=== PATIENT | female | born 1955 | race Caucasian/White ===

== ENCOUNTER 2021-08-10 17:41 | Outpatient (CLI) | payer MEDICARE, OTHER | END 2021-08-10 17:42 | disposition critical access hospital (66) | LOC: EMS 17:41 | DX: R55 Syncope and collapse (principal) | CPT/HCPCS: A0425; A0429 ==

== ENCOUNTER 2021-08-10 18:07 | Emergency (ER) | payer MEDICARE, OTHER ==
[2021-08-10 18:39] LABS: BASOPHILS % (AUTO) 0.6 %; EOSINOPHILS # (AUTO) 0.2 10^3/uL (0.0-0.7); EOSINOPHILS % (AUTO) 2.3 %; HCT - HEMATOCRIT 38.9 % (37.0-47.0); LYMPHOCYTES # (AUTO) 1.5 10^3/uL (1.5-3.5); LYMPHOCYTES % (AUTO) 22.4 %; MEAN CORPUSCULAR HEMOGLOBIN 31.6 pg (27.0-31.0); MEAN CORPUSCULAR HGB CONC 33.4 g/dL (32.0-36.0); MEAN CORPUSCULAR VOLUME 94.4 fL (81.0-99.0); MONOCYTES # (AUTO) 0.6 10^3/uL (0.0-1.0); NEUTROPHILS # (AUTO) 4.3 10^3/uL (1.5-6.6); NEUTROPHILS % (AUTO) 65.4 %; PLT - PLATELET COUNT 193 10^3/uL (130-450); RED BLOOD COUNT 4.12 10^6/uL (4.20-5.40); RED CELL DISTRIBUTION WIDTH 12.7 % (12.0-15.0); WHITE BLOOD COUNT 6.5 x10^3/uL (4.8-10.8)
--- NOTE | 2021-08-10 18:54 | ED Physician Documentation ---
History of Present Illness - Stated complaint Stated Complaint: SYNCOPE - Chief complaint Chief Complaint: Neuro - History obtained from History obtained from: Patient - History of Present Illness Timing: Today Pain level max: 0 Pain level now: 0 - Additonal information Additional information: Patient is a 66-year-old female who states that she had a left breast biopsy today at [facility] in [place]. She states she did not eat and drink much over the past 24 hours. They told her to decrease her oral intake. She states that when she got home she had a glass of wine and when she went to stand up she felt dizzy and weak. Worse with standing, better with lying down. Patient was orthostatic with EMS. Review of Systems Constitutional: denies: Fever, Chills GI: denies: Vomiting Skin: denies: Rash Musculoskeletal: denies: Neck pain, Back pain Neurologic: denies: Headache PD PAST MEDICAL HISTORY - Past Medical History Past Medical History: No - Past Surgical History Past Surgical History: No - Present Medications Home Medications: Ambulatory Orders Medication Instructions Recorded Confirmed No Known Home Medications 09/03/13 09/03/13 - Allergies Allergies/Adverse Reactions: Allergies Allergy/AdvReac Type Severity Reaction Status Date / Time codeine [Codeine] Allergy Intermediate Emesis Verified 08/10/21 18:11 Sulfa (Sulfonamide Allergy Intermediate Hives Verified 08/10/21 18:11 Antibiotics) loracarbef [From Lorabid] Allergy Mild Hives Verified 08/10/21 18:11 amoxicillin Allergy Hives Verified 08/10/21 18:11 Penicillins Allergy Hives Verified 08/10/21 18:11 - Social History Does the pt smoke?: No Smoking Status: Never smoker Does the pt drink ETOH?: Yes Does the pt have substance abuse?: No - Immunizations Immunizations are current?: No Immunizations: TDAP current <10years - POLST Patient has POLST: No PD ED PE NORMAL - Vitals Vital signs reviewed: Yes - General General: Alert and oriented X 3, No acute distress, Well developed/nourished - HEENT HEENT: PERRL, Moist mucous membranes - Neck Neck: Supple, no meningeal sign - Cardiac Cardiac: RRR, Strong equal pulses - Respiratory Respiratory: No respiratory distress, Clear bilaterally - Abdomen Abdomen: Soft, Non tender, Non distended - Derm Derm: Warm and dry - Extremities Extremities: No edema, No calf tenderness / cord - Neuro Neuro: Alert and oriented X 3, reshipping clerk 2-12 intact, No motor deficit, No sensory deficit, Normal speech - Psych Psych: Normal mood, Normal affect Results - Vitals Vitals: Vital Signs - 24 hr 08/10/21 08/10/21 08/10/21 18:11 18:30 21:01 Temperature 37.1 C Heart Rate 56 L 61 Heart Rate [ 85 Sitting] Heart Rate [ 93 Standing] Heart Rate [ 62 Supine] Respiratory 18 14 Rate Blood Pressure 136/94 H 129/78 Blood Pressure 115/65 [Sitting] Blood Pressure 82/53 L [Standing] Blood Pressure 121/70 [Supine] O2 Saturation 98 Oxygen O2 Source Room air - EKG (time done) 1826 Rate: Rate (enter#) (56) Rhythm: NSR [place]: Normal Intervals: Normal [place] QRS: Normal Ischemia: Normal ST segments - Labs Labs: Laboratory Tests 08/10/21 08/10/21 08/10/21 18:25 18:25 18:25 WBC 6.5 RBC 4.12 L Hgb 13.0 Hct 38.9 MCV 94.4 MCH 31.6 H MCHC 33.4 RDW 12.7 Plt Count 193 MPV 10.0 Neut # (Auto) 4.3 Lymph # (Auto) 1.5 [place] # (Auto) 0.6 Eos # (Auto) 0.2 Baso # (Auto) 0.0 Absolute Nucleated RBC 0.00 Nucleated RBC % 0.0 Sodium 138 Potassium 3.7 Chloride 104 Carbon Dioxide 25 Anion Gap 9.0 BUN 20 Creatinine 0.5 Estimated GFR (MDRD) 123 Glucose 100 Calcium 9.1 Total Bilirubin 0.7 AST 18 ALT 19 Alkaline Phosphatase 51 Troponin I High Sens 3.7 Total Protein 6.4 L Albumin 4.2 Globulin 2.2 Albumin/Globulin Ratio 1.9 Lipase 39 PD MEDICAL DECISION MAKING - ED course Complexity details: reviewed results, re-evaluated patient, considered differential, d/w patient ED course: Patient with orthostatic hypotension. Given IV fluids and symptoms resolved. Blood pressure normalized. No longer orthostatic. No near syncope. Tolerating p.o. without difficulty. We will have her follow-up with her doctor for further care. Patient counseled regarding signs and symptoms for which I believe and urgent re-evaluation would be necessary. Patient with good understanding of and agreement to plan and is comfortable going home at this time This document was made in part using voice recognition software. While efforts are made to proofread this document, sound alike and grammatical errors may occur. Departure - Departure Disposition: 01 Home, Self Care Clinical Impression: Orthostatic hypotension Condition: Good Instructions: ED Hypotension Orthostatic Follow-Up: your,doctor in 1 week [Other] Comments: Go home and rest tonight. Make sure you are drinking plenty of fluids. Return if you worsen. Follow-up with your doctor for further care. Discharge Date/Time: 08/10/21 21:05
[2021-08-10 18:56] LABS: ALBUMIN 4.2 g/dL (3.2-5.5); ALBUMIN/GLOBULIN RATIO 1.9 (1.0-2.2); BILIRUBIN,TOTAL 0.7 mg/dL (0.2-1.0); CALCIUM 9.1 mg/dL (8.5-10.3); CREATININE 0.5 mg/dL (0.4-1.0); POTASSIUM 3.7 mmol/L (3.5-5.0); TOTAL PROTEIN 6.4 g/dL (6.7-8.2)
[2021-08-10] MEDS ORDERED: SODIUM CHLORIDE 0.9% 1,000 ML IV STA ×2 (18:56)
[2021-08-10] MEDS ORDERED: ONDANSETRON 4 MG/2 ML VIAL IVP STA (19:58)
[2021-08-10 21:02] VITALS: BP 129/78
== END 2021-08-10 21:05 | disposition home or self-care (01) ==
LOC: EDUNIT# → ED 18:07
DX: I95.1 Orthostatic hypotension (principal)
CPT/HCPCS: 36415; 80053; 83690; 84484; 85025; 93005; 96361; 96374; 99283

== ENCOUNTER 2022-08-26 08:00 | Outpatient (CLI) | payer MEDICARE, OTHER ==
--- NOTE | 2022-08-26 10:22 | XRAY Report ---
PROCEDURE: Finger(s) RT INDICATIONS: RIGHT RING FINGER PAIN TECHNIQUE: AP hand, 2 views of the fourth finger(s) acquired. COMPARISON: None FINDINGS: Bones: Dorsal dislocation with foreshortening noted at the fourth distal interphalangeal joint. The f ifth finger is held in flexion at the MCP and PIP joints no evidence of cortical fracture. Soft tissues: No suspicious soft tissue calcifications. IMPRESSION: 1. Fourth DIP dorsal dislocation with foreshortening Reviewed by: Ramo Bertrand MD on 08/26/2022 9:21 AM [place] Approved by: Ramo Bertrand MD on 08/26/2022 9:21 AM [place] Station ID: [id number]
--- NOTE | 2022-08-26 11:46 | XRAY Report ---
PROCEDURE: Finger(s) RT INDICATIONS: POST REDUCTION RING FINGER RIGHT TECHNIQUE: AP hand, 2 views of the fourth finger(s) acquired. COMPARISON: Same day FINDINGS: Bones: Previous seen noted to the fourth DIP dislocation has been reduced in the interval. No convinc ing evidence of fracture. Fifth finger held in flexion, unchanged. Soft tissues: No suspicious soft tissue calcifications. IMPRESSION: Fourth DIP narrowing anatomic alignment. No convincing evidence of fracture. Reviewed by: Ramo Bertrand MD on 08/26/2022 10:45 AM [facility] Approved by: Ramo Bertrand MD on 08/26/2022 10:45 AM [facility] Station ID: [id number]
== END 2022-08-26 23:59 | disposition home or self-care (01) ==
LOC: DI.S 08:00
PROVIDERS: ATTEND Physician Assistant
DX: S63.294A Dislocation of distal interphalangeal joint of right ring finger, initial encounter (principal)

== ENCOUNTER 2023-07-15 07:00 | Emergency (ER) | payer MEDICARE, OTHER ==
[2023-07-15] MEDS ORDERED: KETOROLAC 30 MG/ML VIAL IVP STA (07:40)
[2023-07-15] MEDS ORDERED: ONDANSETRON 4 MG/2 ML VIAL IVP STA (07:40)
[2023-07-15] MEDS ORDERED: SODIUM CHLORIDE 0.9% 1,000 ML IV STA (07:40)
[2023-07-15 07:42] LABS: BILIRUBIN,URINE NEGATIVE (NEGATIVE); GLUCOSE, URINE (UA) NEGATIVE (NEGATIVE); KETONES,URINE (UA) NEGATIVE (NEGATIVE); LEUKOCYTE ESTERASE, URINE MODERATE (NEGATIVE); NITRITE,URINE NEGATIVE (NEGATIVE); OCCULT BLOOD,URINE MODERATE (NEGATIVE); PH,URINE 6.5 PH (5.0-7.5); PROTEIN,URINE 100 mg/dL (NEGATIVE); UROBILINOGEN,URINE 0.2 (NORMAL) E.U./dL (NORMAL)
[2023-07-15 07:43] LABS: BASOPHILS % (AUTO) 0.4 %; CLARITY,URINE CLEAR (CLEAR); EOSINOPHILS # (AUTO) 0.2 10^3/uL (0.0-0.7); HCT - HEMATOCRIT 41.3 % (37.0-47.0); HGB - HEMOGLOBIN 14.2 g/dL (12.0-16.0); LYMPHOCYTES # (AUTO) 1.4 10^3/uL (1.5-3.5); LYMPHOCYTES % (AUTO) 27.9 %; MEAN CORPUSCULAR HEMOGLOBIN 31.5 pg (27.0-31.0); MEAN CORPUSCULAR HGB CONC 34.4 g/dL (32.0-36.0); MEAN CORPUSCULAR VOLUME 91.6 fL (81.0-99.0); MEAN PLATELET VOLUME 10.2 fL (7.9-10.8); MONOCYTES # (AUTO) 0.5 10^3/uL (0.0-1.0); MONOCYTES % (AUTO) 10.3 %; NEUTROPHILS # (AUTO) 2.7 10^3/uL (1.5-6.6); NEUTROPHILS % (AUTO) 56.2 %; PLT - PLATELET COUNT 189 10^3/uL (130-450); RED BLOOD COUNT 4.51 10^6/uL (4.20-5.40); RED CELL DISTRIBUTION WIDTH 12.8 % (12.0-15.0); WHITE BLOOD COUNT 4.8 x10^3/uL (4.8-10.8)
[2023-07-15 07:56] LABS: ALBUMIN 4.5 g/dL (3.2-5.5); BILIRUBIN,TOTAL 0.6 mg/dL (0.2-1.0); CALCIUM 9.4 mg/dL (8.5-10.3); CREATININE 0.6 mg/dL (0.6-1.3); TOTAL PROTEIN 6.7 g/dL (6.4-8.9)
--- NOTE | 2023-07-15 08:09 | ED Physician Documentation ---
PD HPI FEMALE - Stated complaint Stated Complaint: LT ABD/BACK PX - Chief complaint Chief Complaint: Abd Pain - History obtained from History obtained from: Patient, Family - History of Present Illness Timing - onset: Yesterday Timing - duration: Days (1) Timing - details: Gradual onset, Still present Associated symptoms: Abdominal pain, Back pain, Dysuria, Urinary frequency, Other (nausea) Similar symptoms before: Has not had sx before Recently seen: Not recently seen - Additional information Additional information: 68-year-old [facility] has a history of breast cancer and this has been successfully treated. She has now developed some pain in her left flank and some nausea and this is associated with the beginnings of urinary symptoms yesterday afternoon with urinary urgency and frequency and dysuria. She has not had fever with this. She has not had Peylo previously. She is in the process of moving and believes this may be the reason she has developed urinary tract infection Review of Systems Constitutional: denies: Fever Ears: denies: Ear pain Nose: denies: Congestion Throat: denies: Sore throat Cardiac: denies: Chest pain / pressure Respiratory: denies: Dyspnea, Cough GI: reports: Abdominal Pain, Nausea. denies: Constipation, Diarrhea : reports: Dysuria, Frequency Skin: denies: Rash Musculoskeletal: reports: Back pain. 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 : None HEENT: None Psych: None Musculoskeletal: None Derm: None - Past Surgical History Past Surgical History: Yes /MEDICAL INSTRUMENT CABLE FABRICATOR: Other - Present Medications Home Medications: Ambulatory Orders Medication Instructions Recorded Confirmed Rosuvastatin Calcium [Crestor] 10 mg PO DAILY 01/03/22 07/15/23 Anastrozole 1 mg PO DAILY 06/13/22 07/15/23 Alendronate Sodium 70 mg PO Q7D 07/15/23 07/15/23 Calcium Carbonate/Vitamin D3 1 each PO DAILY 07/15/23 07/15/23 [Caltrate 600 Plus D3 Tablet] Cholecalciferol (Vitamin D3) 50 mcg PO DAILY 07/15/23 07/15/23 [Vitamin D3] Ciprofloxacin HCl [Cipro] 500 mg PO BID #14 tablet 07/15/23 Cranberry Fruit Extract [Cranberry] 500 mg PO DAILY 07/15/23 07/15/23 Krill/Om-3/Dha/Epa/Phospho/Ast 1 each PO DAILY 07/15/23 07/15/23 [Krill Oil 500 mg Softgel] Multivit-Min/Iron/FA/Vit K/Lut 1 each PO DAILY 07/15/23 07/15/23 [Centrum Women 50 Plus Minis Tb] Nortriptyline [Pamelor] 10 mg PO HS PRN 07/15/23 07/15/23 Ondansetron Odt [Zofran] 4 mg TL Q6H PRN #10 tablet 07/15/23 Vitamin B Complex [B-Complex] 1 each PO DAILY 07/15/23 07/15/23 glucosamine HCL [Glucosamine HCl] 1,500 mg PO DAILY 07/15/23 07/15/23 - Allergies Allergies/Adverse Reactions: Allergies Allergy/AdvReac Type Severity Reaction Status Date / Time codeine [Codeine] Allergy Intermediate Emesis Verified 07/15/23 07:11 Sulfa (Sulfonamide Allergy Intermediate Hives Verified 07/15/23 07:11 Antibiotics) loracarbef [From Lorabid] Allergy Mild Hives Verified 07/15/23 07:11 amoxicillin Allergy Hives Verified 07/15/23 07:11 Penicillins Allergy Hives Verified 07/15/23 07:11 - Social History Does the pt smoke?: No Smoking Status: Never smoker Does the pt drink ETOH?: Yes ETOH Use: Wine Does the pt have substance abuse?: No - Immunizations Immunizations are current?: No Immunizations: TDAP current <10years - POLST Patient has POLST: No PD ED PE NORMAL - Vitals Vital signs reviewed: Yes (hypertensive ) - General General: Alert and oriented X 3, No acute distress, Well developed/nourished - HEENT HEENT: Atraumatic, PERRL, EOMI - Neck Neck: Supple, no meningeal sign, No bony TTP - Cardiac Cardiac: RRR, No murmur - Respiratory Respiratory: No respiratory distress, Clear bilaterally - Abdomen Abdomen: Normal bowel sounds, Soft, Non distended, No organomegaly, Other (LUQ and L flank pain worse with bimanual palpation ) - Back Back: No CVA TTP, No spinal TTP - Derm Derm: Normal color, Warm and dry, No rash - Extremities Extremities: No deformity, No edema - Neuro Neuro: Alert and oriented X 3, sales technician 2-12 intact, No motor deficit, No sensory deficit, Normal speech Eye Opening: Spontaneous Motor: Obeys Commands Verbal: Oriented GCS Score: 15 - Psych Psych: Normal mood, Normal affect Results - Vitals Vitals: Vital Signs - 24 hr 07/15/23 07/15/23 07/15/23 07:08 07:43 09:58 Temperature 36.4 C L Heart Rate 55 L 46 L 48 L Respiratory 18 16 16 Rate Blood Pressure 172/65 H 150/69 H 129/71 O2 Saturation 99 99 100 Oxygen O2 Source Room air - Labs Labs: Laboratory Tests 07/15/23 07/15/23 07/15/23 07:30 07:30 07:30 WBC 4.8 RBC 4.51 Hgb 14.2 Hct 41.3 MCV 91.6 MCH 31.5 H MCHC 34.4 RDW 12.8 Plt Count 189 MPV 10.2 Neut # (Auto) 2.7 Lymph # (Auto) 1.4 L [place] # (Auto) 0.5 Eos # (Auto) 0.2 Baso # (Auto) 0.0 Absolute Nucleated RBC 0.00 Nucleated RBC % 0.0 Sodium 140 Potassium 4.0 Chloride 106 Carbon Dioxide 27 Anion Gap 7.0 BUN 22 H Creatinine 0.6 Estimated GFR (MDRD) 99 Glucose 125 H Calcium 9.4 Total Bilirubin 0.6 AST 16 ALT 15 Alkaline Phosphatase 43 Total Protein 6.7 Albumin 4.5 Globulin 2.2 Albumin/Globulin Ratio 2.0 Lipase 45 Urine Color YELLOW Urine Clarity CLEAR Urine pH 6.5 Ur Specific [place] 1.025 Urine Protein 100 H Urine Glucose (UA) NEGATIVE Urine Ketones NEGATIVE Urine Occult Blood MODERATE H Urine Nitrite NEGATIVE Urine Bilirubin NEGATIVE Urine Urobilinogen 0.2 (NORMAL) Ur Leukocyte Esterase MODERATE H Ur Microscopic Review NOT INDICATED Urine Culture Comments NOT INDICATED Procedures - IVC sono (time) 0730 Bedside IVC sono: IVC measures (cm) (1.12), Dehydration (est 1 liter deficit) PD Medical Decision Making - ED course Complexity details: considered differential, d/w patient, d/w family Reviewed Lab Results: We reviewed a complete blood count showing a normal white blood cell count normal hemoglobin hematocrit and platelets chemistries showing normal electrolytes normal kidney function normal liver function minimally elevated BUN urinalysis showing moderate leukocyte Estrace moderate occult blood and protein. The initial specimen was QNS for microscopic exam.My interpretation of these results are that the patient is mildly dehydrated and has urinary tract infection combined with her physical exam findings and symptoms of nausea she is diagnosed with pyelonephritis ED course: 68-year-old female diagnosed with pyelonephritis treated in the emergency department with a liter of fluid 30 mg of Toradol 4 mg of Zofran and 400mg of cipro. Improved dramatically. Departure - Departure Disposition: 01 Home, Self Care Clinical Impression: Pyelonephritis Instructions: ED Kidney Infec Female Follow-Up: SAWYER NAVARRETE DO [Primary Care Provider] - Prescriptions: Ciprofloxacin HCl [Cipro] 500 mg PO BID #14 tablet Ondansetron Odt [Zofran] 4 mg TL Q6H PRN #10 tablet PRN Reason: Nausea / Vomiting Comments: Abbie, today it looks like you have a kidney infection and this usually will cause some problem with nausea and pain. We have prescribed some antibiotics some Cipro to the [facility] in [place]. You will need to take this for about 1 week. There is sometimes a lot of nausea associated with kidney infection and I have E scribed some Zofran for use as well. Our expectation with treatment is improvement day by day and resolution within the week. The pain of pyelonephritis usually lasts at least 1 week. Discharge Date/Time: 07/15/23 10:27
[2023-07-15] MEDS ORDERED: CIPROFLOXACIN 400 MG/200 ML 400 MG/200 ML BAG IV STA (08:38)
[2023-07-15 10:03] VITALS: BP 129/71; O2SAT 100
== END 2023-07-15 10:27 | disposition home or self-care (01) ==
LOC: ED 07:00
DX: E86.0 Dehydration (principal); N12 Tubulo-interstitial nephritis, not specified as acute or chronic
CPT/HCPCS: 36415; 80053; 81001; 81003; 83690; 85025; 87086; 96361; 96365; 96375; 99284

== ENCOUNTER 2023-07-21 14:15 | Emergency (ER) | payer MEDICARE, OTHER ==
[2023-07-21 14:32] VITALS: O2SAT 99
[2023-07-21 14:41] LABS: BASOPHILS % (AUTO) 0.8 %; EOSINOPHILS # (AUTO) 0.3 10^3/uL (0.0-0.7); EOSINOPHILS % (AUTO) 4.9 %; HCT - HEMATOCRIT 40.1 % (37.0-47.0); HGB - HEMOGLOBIN 13.4 g/dL (12.0-16.0); LYMPHOCYTES # (AUTO) 1.6 10^3/uL (1.5-3.5); LYMPHOCYTES % (AUTO) 32.2 %; MEAN CORPUSCULAR HEMOGLOBIN 31.2 pg (27.0-31.0); MEAN CORPUSCULAR HGB CONC 33.4 g/dL (32.0-36.0); MEAN CORPUSCULAR VOLUME 93.5 fL (81.0-99.0); MEAN PLATELET VOLUME 10.6 fL (7.9-10.8); MONOCYTES # (AUTO) 0.6 10^3/uL (0.0-1.0); MONOCYTES % (AUTO) 11.1 %; NEUTROPHILS # (AUTO) 2.6 10^3/uL (1.5-6.6); NEUTROPHILS % (AUTO) 50.8 %; PLT - PLATELET COUNT 206 10^3/uL (130-450); RED BLOOD COUNT 4.29 10^6/uL (4.20-5.40); WHITE BLOOD COUNT 5.1 x10^3/uL (4.8-10.8)
[2023-07-21 14:51] LABS: BILIRUBIN,URINE NEGATIVE (NEGATIVE); GLUCOSE, URINE (UA) NEGATIVE (NEGATIVE); KETONES,URINE (UA) NEGATIVE (NEGATIVE); LEUKOCYTE ESTERASE, URINE TRACE (NEGATIVE); NITRITE,URINE NEGATIVE (NEGATIVE); OCCULT BLOOD,URINE LARGE (NEGATIVE); PH,URINE 6.5 PH (5.0-7.5); PROTEIN,URINE 30 mg/dL (NEGATIVE); UROBILINOGEN,URINE 0.2 (NORMAL) E.U./dL (NORMAL)
--- NOTE | 2023-07-21 14:51 | ED Physician Documentation ---
History of Present Illness - Stated complaint Stated Complaint: - Chief complaint Chief Complaint: UTI - Additonal information Additional information: 68-year-old female comes the emergency department for evaluation of hematuria over the last 2 days. She was seen in this emergency department on 15 July for left flank pain. At that time urinalysis showed microscopic blood. She was presumed to have a suspicion of pyelo and was started on Cipro. She is nearly done with that antibiotic but despite this the hematuria that now gross has developed. She has no fevers. Denies any further episodes of flank pain. She does have a history of breast cancer status post lumpectomy and radiation. Being followed by the [facility] clinic. Takes no anticoagulation. She is on aledondrate for osteoporosis as well as a statin for hyperlipidemia. 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 HEENT: None Psych: None Musculoskeletal: None Derm: None - Past Surgical History Past Surgical History: Yes /TOOLROOM ATTENDANT: Other - Present Medications Home Medications: Ambulatory Orders Medication Instructions Recorded Confirmed Rosuvastatin Calcium [Crestor] 10 mg PO DAILY 01/03/22 07/15/23 Anastrozole 1 mg PO DAILY 06/13/22 07/15/23 Alendronate Sodium 70 mg PO Q7D 07/15/23 07/15/23 Calcium Carbonate/Vitamin D3 1 each PO DAILY 07/15/23 07/15/23 [Caltrate 600 Plus D3 Tablet] Cholecalciferol (Vitamin D3) 50 mcg PO DAILY 07/15/23 07/15/23 [Vitamin D3] Ciprofloxacin HCl [Cipro] 500 mg PO BID #14 tablet 07/15/23 Cranberry Fruit Extract [Cranberry] 500 mg PO DAILY 07/15/23 07/15/23 Krill/Om-3/Dha/Epa/Phospho/Ast 1 each PO DAILY 07/15/23 07/15/23 [Krill Oil 500 mg Softgel] Multivit-Min/Iron/FA/Vit K/Lut 1 each PO DAILY 07/15/23 07/15/23 [Centrum Women 50 Plus Minis Tb] Nortriptyline [Pamelor] 10 mg PO HS PRN 07/15/23 07/15/23 Ondansetron Odt [Zofran] 4 mg TL Q6H PRN #10 tablet 07/15/23 Vitamin B Complex [B-Complex] 1 each PO DAILY 07/15/23 07/15/23 glucosamine HCL [Glucosamine HCl] 1,500 mg PO DAILY 07/15/23 07/15/23 Cefpodoxime Proxetil [Vantin] 100 mg PO Q12H #20 tablet 07/21/23 - Allergies Allergies/Adverse Reactions: Allergies Allergy/AdvReac Type Severity Reaction Status Date / Time codeine [Codeine] Allergy Intermediate Emesis Verified 07/21/23 14:25 Sulfa (Sulfonamide Allergy Intermediate Hives Verified 07/21/23 14:25 Antibiotics) loracarbef [From Lorabid] Allergy Mild Hives Verified 07/21/23 14:25 amoxicillin Allergy Hives Verified 07/21/23 14:25 Penicillins Allergy Hives Verified 07/21/23 14:25 - Social History Does the pt smoke?: No Smoking Status: Never smoker Does the pt drink ETOH?: Yes Does the pt have substance abuse?: No - Immunizations Immunizations are current?: No Immunizations: TDAP current <10years - POLST Patient has POLST: No PD ED PE NORMAL - General General: Alert and oriented X 3, No acute distress - Cardiac Cardiac: RRR, No murmur - Respiratory Respiratory: Clear bilaterally - Abdomen Abdomen: Normal bowel sounds, Soft. 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 Eye Opening: Spontaneous Motor: Obeys Commands Verbal: Oriented GCS Score: 15 Results - Vitals Vitals: Vital Signs - 24 hr 07/21/23 14:21 Temperature 36.9 C Heart Rate 56 L Respiratory 16 Rate Blood Pressure 148/70 H O2 Saturation 99 Oxygen O2 Source Room air - Labs Labs: Laboratory Tests 07/21/23 07/21/23 07/21/23 14:35 14:36 14:36 WBC 5.1 RBC 4.29 Hgb 13.4 Hct 40.1 MCV 93.5 MCH 31.2 H MCHC 33.4 RDW 13.0 Plt Count 206 MPV 10.6 Neut # (Auto) 2.6 Lymph # (Auto) 1.6 [place] # (Auto) 0.6 Eos # (Auto) 0.3 Baso # (Auto) 0.0 Absolute Nucleated RBC 0.00 Nucleated RBC % 0.0 Sodium 137 Potassium 3.8 Chloride 104 Carbon Dioxide 29 Anion Gap 4.0 L BUN 17 Creatinine 1.0 Estimated GFR (MDRD) 55 L Glucose 90 Calcium 9.5 Total Bilirubin 0.5 AST 16 ALT 14 Alkaline Phosphatase 37 L Total Protein 6.3 L Albumin 4.4 Globulin 1.9 L Albumin/Globulin Ratio 2.3 H Lipase 66 Urine Color RED/BLOODY Urine Clarity CLOUDY Urine pH 6.5 Ur Specific [place] 1.020 Urine Protein 30 H Urine Glucose (UA) NEGATIVE Urine Ketones NEGATIVE Urine Occult Blood LARGE H Urine Nitrite NEGATIVE Urine Bilirubin NEGATIVE Urine Urobilinogen 0.2 (NORMAL) Ur Leukocyte Esterase TRACE H Urine RBC TNTC H Urine WBC 6-10 H Ur Squamous Epith Cells NONE SEEN Urine Bacteria Moderate H Ur Microscopic Review INDICATED Urine Culture Comments INDICATED - Rads (name of study) CT abd/pelvis wo Relevant Findings:: Prelim report reviewed, Final report received (Mild left- sided hydronephrosis seen. Nonobstructing left-sided kidney stones that measure up to 3 mm. Small hiatal hernia) PD Medical Decision Making - ED course Complexity details: reviewed results, re-evaluated patient, d/w patient ED course: 68-year-old female here for hematuria. Denies any flank or abdominal pain. However was seen on July 15 with left flank pain and thought to have UTI or kidney infection and started on Cipro. Hematuria developed yesterday and today. No fevers or vomiting. Here in the emergency department CBC without leukocytosis. Normal hemoglobin. Electrolytes showed normal renal function. UA today is largely consistent with infection large amount of blood 6-10 WBCs and moderate bacteria. A culture is pending. Given the failure of symptoms to resolve with Cipro she was given a gram of ceftriaxone here in the ER and will be started on Vantin for the next 10 days. Subsequently however a CT of the abdomen was completed which showed no obstructing ureter stones. She does have some left-sided hydronephrosis without obstruction seen. Patient was advised to have prompt follow-up with PCP for referral to urology though clinically nothing in this history suggest the need for stone removal or stenting. As such she is discharged home in stable condition with usual emergent return precautions discussed for worsening symptoms Departure - Departure Disposition: Home, Self Care Clinical Impression: Hydronephrosis of left kidney Urinary tract infection Qualifiers: Urinary tract infection type: site unspecified Hematuria presence: with hematuria Qualified Code(s): N39.0 - Urinary tract infection, site not specified; R31.9 - Hematuria, unspecified Condition: Stable Record reviewed to determine appropriate education?: Yes Follow-Up: SAWYER NAVARRETE DO [Primary Care Provider] - Prescriptions: Cefpodoxime Proxetil [Vantin] 100 mg PO Q12H #20 tablet Comments: Abbie the antibiotics you are started on do not seem to be fixing your urinary infection. A prescription for Vantin has been sent to the [facility] in [place]. You will take this twice daily for the next 10 days Your labs today were otherwise normal with the exception of the urinary infection. CT of your abdomen shows left-sided hydronephrosis but no obstructing stones or ureter stones. Important you discuss this closely with your primary care doctor as you will need referral to urology. Return to the ER for any new or worsening symptoms, fevers, flank pain or uncontrolled vomiting. Forms: PCP List
[2023-07-21 14:53] LABS: CLARITY,URINE CLOUDY (CLEAR)
[2023-07-21 14:58] LABS: ALBUMIN 4.4 g/dL (3.2-5.5); ALBUMIN/GLOBULIN RATIO 2.3 (1.0-2.2); BILIRUBIN,TOTAL 0.5 mg/dL (0.2-1.0); CALCIUM 9.5 mg/dL (8.5-10.3); POTASSIUM 3.8 mmol/L (3.5-4.5); TOTAL PROTEIN 6.3 g/dL (6.4-8.9)
[2023-07-21 15:10] LABS: BACTERIA,URINE Moderate /HPF (None Seen); RBC,URINE TNTC /HPF (0-5); SQUAMOUS EPITHELIAL CELL,UR NONE SEEN (<= Few)
[2023-07-21] MEDS ORDERED: cefTRIAXone 1 GM VIAL IVP STA (15:11)
--- NOTE | 2023-07-21 16:48 | CT Report ---
PROCEDURE: ABDOMEN/PELVIS WO INDICATIONS: hematuria TECHNIQUE: A CT scan of the abdomen and pelvis was performed without the use of intravenous contrast. Images we re recorded and evaluated at appropriate window settings. Reformats: coronal and sagittal. For radiat ion dose reduction, the following was used: automated exposure control, adjustment of mA and/or kV ac cording to patient size. This scan was intended to be performed with IV contrast. However, there was an injector malfunction a nd a noncontrast scan was performed, with the agreement of the referring clinician. COMPARISON: None. FINDINGS: Image quality: Excellent. Lung bases and heart: A small hiatal hernia is incidentally noted. Liver: No solid mass. Gallbladder and biliary tree: Within normal limits. Spleen: No splenomegaly. Pancreas: No pancreatic ductal dilation. Adrenals: No adrenal nodule. Kidneys and ureters: Mild left-sided hydronephrosis and hydroureter can be seen. No stones are seen. Nonobstructing left-sided kidney stones are seen that measure up to 3 mm. A 9 mm complex cyst can be seen involving the posterior aspect of the left kidney, with layering calc ification. No significant abnormality of the right kidney can be seen. Bowel and peritoneum: No bowel distension. No pathologic free fluid. A normal appendix is seen. Lymph nodes: No central or retroperitoneal adenopathy. Vessels: No infrarenal aortic aneurysm. Atherosclerotic calcification is seen. PELVIS Reproductive organs: The uterus demonstrates an unremarkable appearance for age. No adnexal masses ar e seen. Bladder: No wall thickness, accounting for underdistention. Pelvic lymph nodes: No pelvic adenopathy by size criteria. Bones: No aggressive osseous abnormality. Other: No significant ventral or inguinal hernia. IMPRESSION: Mild left-sided hydronephrosis is seen, yet without an obstructing stone seen. Nonobstructing left-sided kidney stones are seen that measure up to 3 mm. Complex cyst seen of the posterior aspect of the left kidney, with layering calcification. Additional findings: Small hiatal hernia Reviewed by: Gurwinder Yen MD on 07/21/2023 3:47 PM [facility] Approved by: Gurwinder Yen MD on 07/21/2023 3:47 PM TIFFANIE Station ID: [id number]
[2023-07-21 18:00] VITALS: BP 141/67
[2023-07-21] MEDS ORDERED: iohexoL-300 100 ML VIAL IVP ONE (19:17)
== END 2023-07-21 18:10 | disposition home or self-care (01) ==
LOC: ED 14:15
DX: N39.0 Urinary tract infection, site not specified (principal); N13.30 Unspecified hydronephrosis
CPT/HCPCS: 36415; 74176; 80053; 81001; 83690; 85025; 87086; 96374; 99284; Q9967; 81003